=== PATIENT | female | born 1955 | race Caucasian/White ===

== ENCOUNTER 2019-02-04 22:04 | Emergency (ER) ==
[2019-02-04] MEDS ORDERED: BOOSTRIX IM ONE (22:08)
[2019-02-04] MEDS ORDERED: LIDOCAINE HCL 1% SDV SUBCUT STA (22:08)
[2019-02-04] MEDS ORDERED: DILAUDID 1 MG/ML SYRINGE IM STA (22:08)
[2019-02-04] MEDS ORDERED: SILVADENE CREAM TP STA (22:08)
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
[2019-02-04 22:17] VITALS: BP 174/92; TEMP 98.5; BMI 32.5
[2019-02-04] MEDS ORDERED: LIDOCAINE 1 % AMP 5 ML (SUTURES) ONE (22:20)
[2019-02-04] MEDS ORDERED: LIDOCAINE HCL 1% SDV ONE (22:33)
== END 2019-02-04 23:20 | disposition home or self-care (01) ==
LOC: ED 22:04
DX: S41.122A Laceration with foreign body of left upper arm, initial encounter (principal); T20.27XA Burn of second degree of neck, initial encounter; T22.20XA Burn of second degree of shoulder and upper limb, except wrist and hand, unspecified site, initial encounter; T21.21XA Burn of second degree of chest wall, initial encounter; T31.11 Burns involving 10-19% of body surface with 10-19% third degree burns; X08.8XXA Exposure to other specified smoke, fire and flames, initial encounter; I10 Essential (primary) hypertension; W39.XXXA Discharge of firework, initial encounter
CPT/HCPCS: 90471; 90715; 96372; 99283